=== PATIENT | male | born 1970 | race Caucasian/White ===

== ENCOUNTER → 2018-11-07 | Day surgery (SDC) | payer BC, OTHER ==
[~2018-11-07] MED LIST: Lactated Ringers 1,000 ML IV SCH; Lidocaine 1% 6 ML ONE; Lidocaine 1%/Sod Bicarbonate in NS 8.4% 1 ML Syringe IDERM PRN; Midazolam 1 MG/ML 2 ML SDV ONE; Propofol 200 MG/20 ML SDV ONE; Sodium Chloride 0.9% 10 ML Syringe FLUSH PRN; fentaNYL 100 MCG/2 ML SDV ONE
--- NOTE | 2018-11-07 07:41 | PCM.PREANE ---
Preanesthetic Assessment - Anesthesia/Transfusion/Family Hx Anesthesia History: Prior Anesthesia Without Reaction Family History of Anesthesia Reaction: No Transfusion History: No Prior Transfusion(s) - Review of Systems General: No Symptoms, Other (anemia with HGB of 8.3) Pulmonary: No Symptoms, Other (smoker, 1ppd) Cardiovascular: Other (murmur) Gastrointestinal: Other (GERD) Neurological: Numbness (in feet), Other Other: Reports: Depression - Physical Assessment NPO Status Date: 11/06/18 NPO Status Time: 00:00 Pulse: 60 O2 Sat by Pulse Oximetry: 100 Respiratory Rate: 16 Blood Pressure: 134/69 Weight: 74.3 kg ASA Class: 3 Mental Status: Alert & Oriented x3 Airway Class: Mallampati = 2 Dentition: Reports: Normal Dentition Thyro-Mental Finger Breadths: 3 Mouth Opening Finger Breadths: 3 ROM/Head Extension: Full Lungs: Clear to Auscultation, Normal Respiratory Effort Cardiovascular: Regular Rate, Regular Rhythm, Murmurs - Imaging/EKG Impressions: sr - Allergies Allergies/Adverse Reactions: Allergies Allergy/AdvReac Type Severity Reaction Status Date / Time prochlorperazine Allergy Cannot Verified 11/04/18 15:11 [From Compazine] Remember - Blood Blood Available: No Product(s) Available: None - Anesthesia Plan Pre-Op Medication Ordered: None - Acknowledgements Anesthesia Type Planned: MAC Pt an Appropriate Candidate for the Planned Anesthesia: Yes Alternatives and Risks of Anesthesia Discussed w Pt/Guardian: Yes Pt/Guardian Understands and Agrees with Anesthesia Plan: Yes PreAnesthesia Questionnaire HEENT History: Reports: Other (See Below) Other HEENT History: nose fracture, has contacts Cardiovascular History: Reports: Heart Murmur Respiratory History: Reports: None Gastrointestinal History: Reports: GERD Genitourinary History: Reports: None [employer] History: Reports: None Musculoskeletal History: Reports: None Neurological History: Reports: None Psychiatric History: Reports: Addiction, Depression Endocrine/Metabolic History: Reports: None Hematologic History: Reports: Anemia Immunologic History: Reports: None Oncologic (Cancer) History: Reports: None Dermatologic History: Reports: None - Past Surgical History Head Surgeries/Procedures: Reports: None HEENT Surgical History: Reports: Naso-Sinus Surgery Cardiovascular Surgical History: Reports: None Respiratory Surgical History: Reports: None GI Surgical History: Reports: None Female Surgical History: Reports: None Male Surgical History: Reports: None Endocrine Surgical History: Reports: None Neurological Surgical History: Reports: None Musculoskeletal Surgical History: Reports: None - SUBSTANCE USE Smoking Status *Q: Current Every Day Smoker Recreational Drug Use History: No - HOME MEDS Home Medications: Home Meds Calcium Carbonate [Tums] 300 mg PO DAILY 10/27/18 [History] Multivitamin [Zoo Chews] 1 tab PO DAILY 10/27/18 [History] Ranitidine HCl [Zantac] 150 mg PO DAILY 10/27/18 [History] - CURRENT (IN HOUSE) MEDS Current Meds: Current Medications Lactated Ringer's (Ringers, Lactated) 1,000 mls @ 125 mls/hr IV ASDIRECTED [facility] Stop: 11/07/18 23:00 Lidocaine/Sodium Bicarbonate (Buffered Lidocaine 1% In Ns 8.4%) 0.25 ml IDERM ONETIME PRN PRN Reason: Prior to IV Start Stop: 11/07/18 23:00 Sodium Chloride (Saline Flush) 10 ml FLUSH ASDIRECTED PRN PRN Reason: Keep Vein Open Stop: 11/07/18 23:00 Discontinued Medications Fentanyl (Sublimaze) Confirm Administered Dose 100 mcg .ROUTE .STK-MED ONE Stop: 10/28/18 08:27 Lactated Ringer's (Ringers, Lactated) 1,000 mls @ 125 mls/hr IV ASDIRECTED [facility] Stop: 10/28/18 23:00 Lidocaine HCl (Xylocaine-Mpf 1%) Confirm Administered Dose 6 mls @ as directed .ROUTE .STK-MED ONE Stop: 10/28/18 08:26 Lidocaine/Sodium Bicarbonate (Buffered Lidocaine 1% In Ns 8.4%) 0.25 ml IDERM ONETIME PRN PRN Reason: Prior to IV Start Stop: 10/28/18 18:00 Propofol (Diprivan 20 Ml) Confirm Administered Dose 400 mg .ROUTE .STK-MED ONE Stop: 10/28/18 08:26 Sodium Chloride (Saline Flush) 10 ml FLUSH ASDIRECTED PRN PRN Reason: Keep Vein Open Stop: 10/28/18 18:00
--- NOTE | 2018-11-07 08:57 | PCM48HPAN ---
Post Anesthesia Note - EVALUATION WITHIN 48HRS OF ANESTHETIC Vital Signs in Normal Range: Yes Patient Participated in Evaluation: Yes Respiratory Function Stable: Yes Airway Patent: Yes Cardiovascular Function Stable: Yes Hydration Status Stable: Yes Pain Control Satisfactory: Yes Nausea and Vomiting Control Satisfactory: Yes Mental Status Recovered: Yes Pulse Rate: 73 SaO2: 96 Resp Rate: 18 Temperature: 98.9 F Blood Pressure: 125/86
--- NOTE | 2018-11-07 08:58 | PCM.OPNOTE ---
- General Post-Op/Procedure Note Date of Surgery/Procedure: 11/07/18 Operative Procedure(s): EGD with bx/colonoscopy Pre Op Diagnosis: TODD irone deficiency aneamia Post-Op Diagnosis: Same Anesthesia Technique: MAC Primary Surgeon: Tigre Montiel EBL in mLs: 0 Complications: None Condition: Good
--- NOTE | 2018-11-08 06:40 | OR ---
DATE OF OPERATION: 11/07/2018 SURGEON: Tigre Montiel MD PREOPERATIVE DIAGNOSIS: Iron deficiency anemia. POSTOPERATIVE DIAGNOSIS: Iron deficiency anemia. PROCEDURE: Esophagogastroduodenoscopy with biopsy done under IV sedation. FINDINGS: Some edema around the antrum and the GE junction, both of which were biopsied. But no acute disease was identified in either area. There was a small hiatal hernia with GE junction located at 40 cm. The second portion of the duodenum, duodenal bulb, pyloric channel, body, fundus, and cardia and balance of the esophagus were normal. DESCRIPTION OF PROCEDURE: The patient taken to the endoscopy room, placed in a supine position, connected to the monitoring equipment, and given IV sedation, placed in left lateral position with a bite block and video Olympus gastroscope placed in the posterior oropharynx. Under direct vision, it threaded past the cricopharyngeus down the esophagus into the stomach. Stomach was insufflated, and the scope passed through the pylorus to the second portion of the duodenum. This was normal as was the duodenal bulb and pyloric channel and viewed and the scope withdrawn. The antrum showed little edema. This was biopsied. Body, cardia, and fundus of the stomach were viewed. J-maneuver was performed. No acute disease was seen. Hiatal hernia was noted with incompetence of the hiatus. The GE junction had been located at 40 cm with some edema in that area and this was biopsied. Otherwise, it was normal. Rest of the esophagus did not show any gross lesions. This completed the upper GI endoscopy. The scope was withdrawn, and the specimen sent to pathology in a labeled container, and IV sedation will be continued for colonoscopy. OPERATION PERFORMED: ANESTHESIA: ESTIMATED BLOOD LOSS: MMODAL /[id number]
--- NOTE | 2018-11-08 06:43 | OR ---
DATE OF OPERATION: 11/07/2018 SURGEON: Tigre Montiel MD PREOPERATIVE DIAGNOSIS: Iron deficiency anemia. POSTOPERATIVE DIAGNOSIS: Iron deficiency anemia. PROCEDURE: Colonoscopy to the cecum done under IV sedation. DESCRIPTION OF PROCEDURE: Having been taken to the endoscopy room for upper GI endoscopy and connected to the monitoring equipment and given IV sedation, IV sedation was continued for colonoscopy. He was placed in the left lateral position. Perianal area was inspected. It was normal. Rectal exam showed good sphincter tone. Video Olympus colonoscope was then introduced into the rectum and threaded up without problem to the cecum. The ileocecal valve and the appendicular orifice were noted. Prep was excellent throughout the colon. [place] cleansing score grade A, and the scope slowly withdrawn showing the cecum, ascending colon, transverse colon, descending colon, sigmoid colon, and rectum. Retroflexed view was done. Study was normal. The patient tolerated the procedure, sent to the recovery room in a stable condition, and will be followed up with Dr. Kee. OPERATION PERFORMED: ANESTHESIA: ESTIMATED BLOOD LOSS: MMODAL /[id number]
== END | disposition home or self-care (01) ==
LOC: JD.SDS 07:09
PROVIDERS: ATTEND Surgery
DX: K29.50 Unspecified chronic gastritis without bleeding (principal); D50.9 Iron deficiency anemia, unspecified; K22.8 Other specified diseases of esophagus; K44.9 Diaphragmatic hernia without obstruction or gangrene; K21.9 Gastro-esophageal reflux disease without esophagitis; E78.5 Hyperlipidemia, unspecified; F32.9 Major depressive disorder, single episode, unspecified; F17.210 Nicotine dependence, cigarettes, uncomplicated; Z88.8 Allergy status to other drugs, medicaments and biological substances; Z79.891 Long term (current) use of opiate analgesic; Z79.899 Other long term (current) drug therapy
CPT/HCPCS: 43239; 45378; J2250; J2704; J3010; J7120; 00813; J2001